=== PATIENT | female | born 1975 | race Caucasian/White ===

== ENCOUNTER 2017-12-27 16:24 | Emergency (ER) | payer BC, SELFPAY ==
[2017-12-27 16:26] VITALS: BP 150/95; PULSE 86; RESP 18; TEMP 37.3; O2SAT 98; BMI 42.7
[2017-12-27 16:40] LABS: Bacteria 0 SEEN /hpf (None Seen); Mucous, Urine 0 SEEN /hpf (<or=2+)
[2017-12-27 17:12] LABS: Color, Urine Straw (Yellow); Glucose, Dipstick Normal (Normal); Ketone-Dipstick Negative (Negative); Leukocyte Esterase-Dipstick Negative /ul (Negative); Nitrite-Dipstick Negative (Negative); Occult Blood-Urine 150 /ul (Negative); Protein-Dipstick 15 mg/dl (Negative); Urine Bilirubin Dipstick Negative (Negative); Urine Clarity Sl. Cloudy (Clear); Urine Urobilinogen Normal (Normal)
--- NOTE | 2017-12-27 17:46 | CT_ITS ---
STUDY: CT ABDOMEN AND PELVIS WITHOUT CONTRAST REASON FOR EXAM: Female, 42 years old. Right flank pain RADIATION DOSAGE (If Supplied By Facility): CTDIvol = ( 23.19 ) mGy, DLP = ( 1228.53 ) mGycm TECHNIQUE: Transaxial images were obtained from the dome of the diaphragm to the symphysis pubis without oral contrast, and without intravenous contrast. Sagittal and coronal images were reconstructed. Individualized dose optimization techniques were used for this CT. COMPARISON: None. FINDINGS: The visualized lung bases are unremarkable. The visualized portions of the heart are within normal limits. Normal liver. Normal gallbladder and extrahepatic biliary system. Normal spleen. Normal pancreas. Normal bilateral adrenal glands. Moderate to severe right hydronephrosis is noted with a large stone at the right UPJ measuring 8 x 8 mm. Multiple other small right-sided nephroliths are noted. Right-sided perinephric fat stranding and edema. Left kidney demonstrates exophytic left lower pole renal cyst which is simple in nature. Multiple left-sided nephroliths without obstruction. Normal visualized stomach. Normal small intestine. There are multiple colonic diverticula consistent with diverticulosis. The appendix is visualized and appears normal. Normal abdominal aorta. Normal inferior vena cava. Normal retroperitoneum. Normal urinary bladder. Normal visualized uterus. Normal abdominal wall. Normal osseous structures. CT/Abdomen/Pelvis without Cont IMPRESSION: Moderate to severe right hydronephrosis with a large stone at the right UPJ. Otherwise, bilateral nephrolithiasis is noted. Right-sided perinephric fat stranding and edema Electronically Signed: Asim Weller DO at 20:04 EDT Tel , Service support ,
[2017-12-27 17:51] LABS: Squamous Epithelial Cells - UA 0-5 SEEN /hpf (5-10)
[2017-12-27 17:52] LABS: Red Blood Cells-Urine 5-10 SEEN /hpf (0-5)
[2017-12-27 17:53] LABS: White Blood Cells 0-5 SEEN /hpf (0-5)
[2017-12-27 18:02] LABS: Absolute Lymphocyte Count 1.68 X10^3/ul (0.83-4.51); Absolute Neutrophil Count 8.6 X10^3/uL (2.0-7.7); Basophil# 0.04 X10^3/uL; Basophil% 0.4 % (0-1); Eosinophil# 0.07 X10^3/uL; Eosinophils% 0.6 % (0-5); Hematocrit 37.6 % (37-47); Hemoglobin 12.5 g/dl (12.0-15.0); Lymphocyte # 1.68 X10^3/ul (4.0); Lymphocyte % 14.9 % (19-41); Mean Corp Hgb Conc 33.2 g/gl (32-36); Mean Corpuscular Hgb 29.7 pg (27.0-32.0); Mean Corpuscular Volume 89.3 fL (81-99); Monocyte# 0.85 X10^3/uL; Monocyte% 7.5 % (0-10); Neutrophil # 8.64 X10^3/uL (2.7-7.7); Neutrophil % 76.3 % (47-70); Platelet Count 244 K/mm3 (150-450); RBC Distribution Width CV 14.9 % (11.6-14.6); RBC Distribution Width SD 48.5 fl (35.1-43.9); Red Blood Count 4.21 M/mm3 (4.2-5.4); White Blood Count 11.3 K/mm3 (4.4-11.0)
[2017-12-27 18:06] LABS: POSITIVE COUNT NO; POSITIVE DIFFERENTIAL NO; POSITIVE MORPHOLOGY NO
[2017-12-27] MEDS: Ondansetron 4 MG/2 ML Vial IV (18:07)
[2017-12-27] MEDS: Ketorolac 30 MG/ML Syringe 15 MG IV (18:07)
[2017-12-27 18:22] LABS: Anion Gap 7 (5-15); BUN 10 mg/dL (7-18); BUN/Creat Ratio 12.2 RATIO (10-20); Calcium,Total 8.7 mg/dL (8.5-10.1); Chloride 107 mmol/L (98-107); Creatinine, Serum 0.82 mg/dL (0.55-1.02); EST Glomerular Filtration Rate 82 mL/min (>60); Est Glom Filt Rate - Afr Amer 99 mL/min (>60); Estimated Creatinine Clearance 85.37 ml/min; Glucose 95 mg/dL (74-106); Potassium 4.3 mmol/L (3.5-5.1); Sodium Level 140 mmol/L (136-145)
[2017-12-27 19:12] LABS: Pregnancy, Serum, hCG Quali. NEGATIVE Negative (0-9 Nonpreg)
--- NOTE | 2017-12-27 20:25 | ED.VISSUMM ---
- ER Visit Summary Date of Service: 12/27/17 Chief Complaint: Possible kidney stone History of Present Illness: The patient is a 42 F presenting for evaluation due to possible kidney stone. Patient reports that she has a history of kidney stones in the past, did not have him until somewhat recently when she has passed a couple. Patient reports that since yesterday she has been having waxing and waning right-sided flank pain. No exacerbating relieving factors, pain is sharp it has been associated with nausea no fever no dysuria or hematuria. Review of systems otherwise negative. Physical Examination: Vital signs are within normal limits, patient is afebrile. General: Patient is well-nourished well-developed and in no acute distress. Head: Normocephalic, atraumatic Eyes: Pupils equal round and reactive bilaterally, extra occular motion intact bialterally ENT: Moist mucous membranes Neck: Supple, no lymphadenopathy, no JVD, no meningismus CVS: Heart regular rate and rhythm, no murmurs, rubs or gallops, radial pulses 2+ bilaterally Resp: Respirations nondistressed, lung sounds clear bilaterally Abdomen: Soft, nontender, nondistended, no palpable masses, normal bowel sounds Back: Minimal right-sided flank tenderness to percussion Extremities: Nontender, atraumatic, active full range of motion, no peripheral edema Skin: warm, no rashes, no petechia Neuro: Alert and oriented x 4, CN 2-12 intact, no lateralizing neurological defecits Psyc: Normal affect Test Results: CT demonstrates a 8 x 8 proximal right-sided stone with moderate hydro-. CBC, chemistry, urinalysis remarkable only for mild leukocytosis 11.3 and RBCs in the urine 5-10 no evidence of pyuria. Emergency Department Course and Treatment: Patient presented secondary to kidney stone. She was evaluated with the above tests which confirmed this and showed proximal stone with no evidence of renal insufficiency and no evidence of pyuria or infection. Patient was treated with Toradol and [place] and had improvement of symptoms. At this point I believe the patient can safely be discharged. Patient is from out of town, and she is returning tomorrow. I recommended that she call her urologist tomorrow to receive a appointment immediately. She understands signs and symptoms for which to return to an emergency department as she will likely not pass the stone without any sort of intervention. She voiced understanding of this on her own terms, patient was discharged. Disposition: Discharge Impression: 1. 8 mm right sided urolithiasis in the proximal ureter This note was generated with [employer] dictation software. It may contain incorrect words, spelling, and punctuation that were not noted in review of the chart prior to signing ED Disposition - Plan for ED Patient: Disposition: Home or Assisted Living Chief Complaint: Flank Pain Diagnosis: Urolithiasis Instructions: ED Stone Renal W Colic Prescriptions: Oxycodone HCl/Acetaminophen [Percocet 5/325] 1 tab PO Q6H PRN PRN 5 Days #20 tab PRN Reason: Pain Tamsulosin HCl [Flomax] 0.4 mg PO DAILY #7 cap Ketorolac [Toradol] 10 mg PO Q6H #20 tab Referrals: [facility] Doctor,Out of [Primary Care Provider] - (As soon as you return home)
--- NOTE | 2017-12-27 20:30 | ED.DCSUM_ITS ---
- ER Visit Summary Date of Service: 12/27/17 Chief Complaint: Possible kidney stone History of Present Illness: The patient is a 42 F presenting for evaluation due to possible kidney stone. Patient reports that she has a history of kidney stones in the past, did not have him until somewhat recently when she has passed a couple. Patient reports that since yesterday she has been having waxing and waning right-sided flank pain. No exacerbating relieving factors, pain is sharp it has been associated with nausea no fever no dysuria or hematuria. Review of systems otherwise negative. Physical Examination: Vital signs are within normal limits, patient is afebrile. General: Patient is well-nourished well-developed and in no acute distress. Head: Normocephalic, atraumatic Eyes: Pupils equal round and reactive bilaterally, extra occular motion intact bialterally ENT: Moist mucous membranes Neck: Supple, no lymphadenopathy, no JVD, no meningismus CVS: Heart regular rate and rhythm, no murmurs, rubs or gallops, radial pulses 2 + bilaterally Resp: Respirations nondistressed, lung sounds clear bilaterally Abdomen: Soft, nontender, nondistended, no palpable masses, normal bowel sounds Back: Minimal right-sided flank tenderness to percussion Extremities: Nontender, atraumatic, active full range of motion, no peripheral edema Skin: warm, no rashes, no petechia Neuro: Alert and oriented x 4, CN 2-12 intact, no lateralizing neurological defecits Psyc: Normal affect Test Results: CT demonstrates a 8 x 8 proximal right-sided stone with moderate hydro-. CBC, chemistry, urinalysis remarkable only for mild leukocytosis 11.3 and RBCs in the urine 5-10 no evidence of pyuria. Emergency Department Course and Treatment: Patient presented secondary to kidney stone. She was evaluated with the above tests which confirmed this and showed proximal stone with no evidence of renal insufficiency and no evidence of pyuria or infection. Patient was treated with Toradol and [place] and had improvement of symptoms. At this point I believe the patient can safely be discharged. Patient is from out of town, and she is returning tomorrow. I recommended that she call her urologist tomorrow to receive a appointment immediately. She understands signs and symptoms for which to return to an emergency department as she will likely not pass the stone without any sort of intervention. She voiced understanding of this on her own terms, patient was discharged. Disposition: Discharge Impression: 1. 8 mm right sided urolithiasis in the proximal ureter This note was generated with [employer] dictation software. It may contain incorrect words, spelling, and punctuation that were not noted in review of the chart prior to signing ED Disposition - Plan for ED Patient: Disposition: Home or Assisted Living Chief Complaint: Flank Pain Diagnosis: Urolithiasis Instructions: ED Stone Renal W Colic Prescriptions: Oxycodone HCl/Acetaminophen [Percocet 5/325] 1 tab PO Q6H PRN PRN 5 Days #20 tab PRN Reason: Pain Tamsulosin HCl [Flomax] 0.4 mg PO DAILY #7 cap Ketorolac [Toradol] 10 mg PO Q6H #20 tab Referrals: [facility] Doctor,Out of [Primary Care Provider] - (As soon as you return home)
[2017-12-27] MEDS: HYDROcodone Bitartrate/Apap 5/325 Tablet PO (20:36)
[2017-12-27] MEDS: Tamsulosin HCl 0.4 MG Capsule PO (20:37)
[2017-12-27 20:46] VITALS: BP 138/60; PULSE 75; RESP 18; O2SAT 96
== END 2017-12-27 20:46 | disposition home or self-care (01) ==
PROVIDERS: Emergency Provider Emergency Medicine
DX: R10.9 Unspecified abdominal pain (principal); N13.2 Hydronephrosis with renal and ureteral calculous obstruction; E66.9 Obesity, unspecified; Z87.442 Personal history of urinary calculi
CPT/HCPCS: 74176; 80048; 81001; 84703; 85025; 96374; 96375; 99285; A4216; J2405